=== PATIENT | male | born 1950 | race Caucasian/White ===

== ENCOUNTER 2016-05-01 09:35 | Outpatient (CLI) | payer MEDICARE, OTHER ==
[2016-05-01 12:36] LABS: #Basophils 0.1 thou/uL (0.0-0.2); #Lymphocytes 0.6 thou/uL (1.20-3.40); #Monocytes 0.4 thou/uL (0.11-0.59); #Neutrophils 2.6 thou/uL (1.40-6.50); %Basophils 1.4 % (0.0-1.0); %Lymphocytes 16.7 % (21.0-51.0); %Monocytes 11.4 % (0.0-10.0); Mean Platelet Volume 9.3 fL (7.4-10.4); Red Blood Cell (RBC) Count 5.38 mill/uL (4.70-6.10); White Blood Cell (WBC) Count 3.7 thou/uL (4.8-10.8)
[2016-05-01 13:15] LABS: ALT (SGPT) 25 U/L (0-55); AST (SGOT) 18 U/L (5-34); Alkaline Phosphatase 59 U/L (40-150); Anion Gap 15 mmol/L (10-20); BUN (Urea Nitrogen) 18 mg/dL (8.4-25.7); Bilirubin, Total 0.4 mg/dL (0.2-1.2); Calc. Creatinine Clearance 0 mL/min (70-130); Calcium 9.2 mg/dL (7.8-10.44); Carbon Dioxide 24 mmol/L (23-31); Chloride 108 mmol/L (98-107); Estimated GFR-MDRD 78; Globulin 2.4 g/dL (2.4-3.5); LDL Cholesterol, Calculated 109 mg/dL; Protein, Total 6.5 g/dL (5.8-8.1)
== END 2016-05-01 09:36 | disposition home or self-care (01) ==
LOC: NAVSJIPCSP 09:35
PROVIDERS: ATTEND Internal Medicine
DX: Z12.5 Encounter for screening for malignant neoplasm of prostate (principal); E78.5 Hyperlipidemia, unspecified; I11.9 Hypertensive heart disease without heart failure; Z79.899 Other long term (current) drug therapy
CPT/HCPCS: 36415; 80053; 80061; 85025; 87086; G0103

== ENCOUNTER 2016-09-03 10:11 | Outpatient (CLI) | payer MEDICARE, OTHER ==
[2016-09-03 12:48] LABS: Cardiac Risk 3.8 (Less than 4.5)
== END 2016-09-03 10:12 | disposition home or self-care (01) ==
LOC: NAVSJIPCSP 10:11
PROVIDERS: ATTEND Internal Medicine
DX: E78.5 Hyperlipidemia, unspecified (principal); Z79.899 Other long term (current) drug therapy
CPT/HCPCS: 36415; 80061

== ENCOUNTER 2016-12-04 09:14 | Outpatient (CLI) | payer MEDICARE, OTHER ==
[2016-12-04 12:46] LABS: Cardiac Risk 3.3 (Less than 4.5)
== END 2016-12-04 09:15 | disposition home or self-care (01) ==
LOC: NAVSJIPCSP 09:14
PROVIDERS: ATTEND Internal Medicine
DX: E78.5 Hyperlipidemia, unspecified (principal)
CPT/HCPCS: 36415; 80061

== ENCOUNTER 2018-07-11 12:25 | Emergency (ER) | payer MEDICARE, OTHER ==
[2018-07-11] MEDS ORDERED: Adacel (T-DAP) 0.5 ML SYRINGE ONE (12:36)
== END 2018-07-11 13:16 | disposition short-term general hospital (02) ==
LOC: NAV ERS 12:25
DX: T70.4XXA Effects of high-pressure fluids, initial encounter (principal); I10 Essential (primary) hypertension
CPT/HCPCS: 90471; 90715

== ENCOUNTER 2025-01-26 09:39 | Emergency (ER) | payer MEDICARE, OTHER ==
[2025-01-26 10:31] LABS: #Basophils 0.2 thou/uL (0.0-0.2); #Eosinophils 0.1 thou/uL (0.0-0.7); #Lymphocytes 0.9 thou/uL (1.20-3.40); #Monocytes 0.4 thou/uL (0.11-0.59); #Neutrophils 4.1 thou/uL (1.40-6.50); %Basophils 2.9 % (0.0-1.0); %Eosinophils 1.2 % (0.0-10.0); %Lymphocytes 16.4 % (21.0-51.0); %Monocytes 7.2 % (0.0-10.0); %Neutrophils 72.2 % (42.0-75.0); Hematocrit 47.4 % (42.0-52.0); Hemoglobin 15.7 g/dL (14.0-18.0); Mean Corpuscular Hemoglobin 29.3 pg (27.0-31.0); Mean Corpuscular Volume 88.6 fl (78.0-98.0); Platelet Count 162 10x3/uL (130-400); Red Blood Cell (RBC) Count 5.35 mill/uL (4.70-6.10); White Blood Cell (WBC) Count 5.7 10x3/uL (4.8-10.8)
== END 2025-01-26 11:45 | disposition short-term general hospital (02) ==
LOC: NAV ERS 09:39
DX: S50.12XA Contusion of left forearm, initial encounter (principal); R79.89 Other specified abnormal findings of blood chemistry; I48.91 Unspecified atrial fibrillation; I10 Essential (primary) hypertension; Z79.899 Other long term (current) drug therapy; Z79.82 Long term (current) use of aspirin; V49.60XA Unspecified car occupant injured in collision with unspecified motor vehicles in traffic accident, initial encounter
CPT/HCPCS: 36415; 85025; 85379